=== PATIENT | female | born 1970 | race Caucasian/White ===

== ENCOUNTER 2020-03-19 04:48 | Emergency (ER) | payer OTHER ==
[~2020-03-19] VITALS: Ht 160 cm; Wt 102.1 kg
[2020-03-19] MEDS ORDERED: XANAX1 MG (04:58)
[2020-03-19] MEDS ORDERED: PRISTIQ ER50 MG (04:58)
== END 2020-03-19 08:37 | disposition home or self-care (01) ==
LOC: ER 04:48
DX: F06.4 Anxiety disorder due to known physiological condition (principal)

== ENCOUNTER 2020-08-25 08:00 | Outpatient (CLI) | payer OTHER ==
[~2020-08-25 08:00] MED LIST: DICLOFENAC POTA50 MG PO; METHOCARBAMOL500 MG PO; PRISTIQ ER50 MG; XANAX1 MG
[2020-10-05] MEDS ORDERED: NORFLEX100MG PO (13:18)
== END 2020-08-25 08:30 | disposition home or self-care (01) ==
LOC: PPH VACUNA 08:00
DX: Z23 Encounter for immunization (principal)

== ENCOUNTER 2020-09-14 15:00 | Outpatient (CLI) | payer OTHER ==
[2020-10-05] MEDS ORDERED: NORFLEX100MG PO (13:18)
== END 2020-09-14 15:14 | disposition home or self-care (01) ==
LOC: MRI 15:00
PROVIDERS: ATTEND Obstetrics & Gynecology Maternal & Fetal Medicine
DX: S89.91XA Unspecified injury of right lower leg, initial encounter (principal)
CPT/HCPCS: 73721

== ENCOUNTER 2022-05-27 14:59 | Outpatient (CLI) | payer OTHER ==
[~2022-05-27 14:59] MED LIST changes: +CIPRO500 MG PO; +INTESTINEX680 M1 PO; +NORFLEX100MG PO; +ONDANSETRON ODT8 MG PO; +PEPCID AC20 MG PO
== END 2022-05-27 15:01 | disposition home or self-care (01) ==
LOC: MRI 14:59
PROVIDERS: ATTEND Physical Medicine & Rehabilitation
DX: M54.59 Other low back pain (principal)
CPT/HCPCS: 72148

== ENCOUNTER 2022-07-13 08:00 | Outpatient (CLI) | payer OTHER | END 2022-07-13 08:17 | disposition home or self-care (01) | LOC: SONOGRAMA 08:00 | PROVIDERS: ATTEND General Practice | DX: E78.5 Hyperlipidemia, unspecified (principal); K76.0 Fatty (change of) liver, not elsewhere classified ==

== ENCOUNTER 2022-08-11 07:57 | Outpatient (CLI) | payer OTHER | END 2022-08-11 08:12 | disposition home or self-care (01) | LOC: RX STUDY 07:57 | PROVIDERS: ATTEND Surgery | DX: R10.13 Epigastric pain (principal); K21.9 Gastro-esophageal reflux disease without esophagitis ==

== ENCOUNTER 2023-04-20 08:10 | Outpatient (CLI) | payer OTHER ==
[~2023-04-20 08:10] MED LIST changes: +DULOXETINE HCL30 MG PO; +NEURONTIN300 MG PO
== END 2023-04-20 13:24 | disposition home or self-care (01) ==
LOC: MRI 08:10
DX: G43.711 Chronic migraine without aura, intractable, with status migrainosus (principal)
CPT/HCPCS: 70551

== ENCOUNTER 2023-12-13 09:32 | Outpatient (CLI) | payer OTHER | END 2023-12-13 10:14 | disposition home or self-care (01) | LOC: MRI 09:32 | PROVIDERS: ATTEND Physical Medicine & Rehabilitation | DX: M54.9 Dorsalgia, unspecified (principal); M62.830 Muscle spasm of back; M46.1 Sacroiliitis, not elsewhere classified | CPT/HCPCS: 72148 ==